=== PATIENT | female | born 1965 | race Two or more races ===

== ENCOUNTER 2020-06-19 05:21 | Day surgery (SDC) | payer OTHER ==
[~2020-06-19 05:21] MED LIST: ONE-DAILY MULT1 EAC1 PO
== END 2020-06-19 13:20 | disposition home or self-care (01) ==
LOC: CIR.AMB 05:21
PROVIDERS: ATTEND Specialist
DX: N87.0 Mild cervical dysplasia (principal); Z20.822 Contact with and (suspected) exposure to COVID-19

== ENCOUNTER 2022-01-18 07:34 | Emergency (ER) | payer OTHER ==
[~2022-01-18] VITALS: Ht 160 cm; Wt 61.2 kg
[2022-01-18] MEDS ORDERED: KETO10TA2 PO (12:21)
[2022-01-18] MEDS ORDERED: TAMS0.4C PO (12:21)
== END 2022-01-18 12:54 | disposition home or self-care (01) ==
LOC: ER 07:34
DX: N20.0 Calculus of kidney (principal); K57.30 Diverticulosis of large intestine without perforation or abscess without bleeding

== ENCOUNTER 2022-10-16 12:52 | Emergency (ER) | payer OTHER ==
[~2022-10-16] VITALS: Ht 160 cm; Wt 58.1 kg
[~2022-10-16 12:52] MED LIST changes: +KETO10TA2 PO; +TAMS0.4C PO
== END 2022-10-16 18:39 | disposition home or self-care (01) ==
LOC: ER 12:52
PROVIDERS: Emergency Medicine
DX: N20.0 Calculus of kidney (principal)

== ENCOUNTER 2022-12-12 08:33 | Outpatient (CLI) | payer OTHER | END 2022-12-12 08:42 | disposition home or self-care (01) | LOC: SONOGRAMA 08:33 | PROVIDERS: ATTEND Pathology Anatomic Pathology & Clinical Pathology | DX: D34 Benign neoplasm of thyroid gland (principal) ==

== ENCOUNTER 2024-10-04 20:51 | Emergency (ER) | payer OTHER ==
[~2024-10-04] VITALS: Ht 160 cm; Wt 56.2 kg
[2024-10-04] MEDS ORDERED: CEFTRIAXONE SODIUM 1,000 MG VIAL ONE (22:15)
[2024-10-04] MEDS ORDERED: KETOROLAC TROMETHAMINE 60 MG VIAL IM ONE ×2 (22:15)
[2024-10-04] MEDS ORDERED: CEFTRIAXONE SODIUM 1,000 MG VIAL IM ONE (22:15)
[2024-10-04 23:11] LABS: BASO % 0.8 % (0.1-1.2); EOS # 0.09 (0.04-0.54); EOS % 1.5 % (0.7-7.0); LYMPH # 1.20 (1.18-3.74); LYMPH % 20.3 % (19.3-53.1); MEAN PLATELET VOLUME 11.70 fl (9.4-12.4); MONO # 0.52 (0.24-0.82); MONO % 8.8 % (4.7-12.5); NEUT # 4.05 (1.56-6.13); NEUT % 68.4 % (34.0-71.1); RED CELL DISTRIBUTION WIDTH 12.0 % (11.6-14.4)
[2024-10-04 23:23] LABS: INR 1.01
[2024-10-04 23:28] LABS: ALT/SGPT 21.0 U/L (12-78); AST/SGOT 13.0 U/L (15-37); BILIRUBIN TOTAL 0.59 mg/dL (0.3-1.2); BUN CREA RATIO 22.0 (7.0-25.0); CREATININE SERUM 0.78 mg/dL (0.55-1.02); GFR 75.85; GLOBULINA 3.6 G/DL (2.4-3.5); GLUCOSE FASTING 98.0 mg/dL (65-100); OSMOLALITY SERUM 283.0 MOSM/KG (275-295)
[2024-10-04 23:47] LABS: URINE APPEARANCE Clear; URINE BILIRRUBIN Negative (NEGATIVE); URINE BLOOD Negative; URINE COLOR Yellow; URINE GLUCOSE Negative (NEGATIVE); URINE KETONE Trace (NEGATIVE); URINE LEUKOCYTE Negative; URINE NITRATE Negative; URINE PROTEIN Negative (NEGATIVE); URINE UROBILINOGEN 0.2 E.U./dl
[2024-10-04 23:55] LABS: URINE WBC 1.8 uL (0.0-23.2)
[2024-10-04 23:57] LABS: URINE BACTERIA 2.3 uL (0.0-1933); URINE CAST 0.14 uL (0.0-1.40); URINE EPITHELIAL CELLS 0.3 uL (0.0-38.8); URINE RBC 1.6 uL (0.0-20.8)
== END 2024-10-05 03:29 | disposition home or self-care (01) ==
LOC: ER 20:51
PROVIDERS: General Practice
DX: R10.32 Left lower quadrant pain (principal); K57.30 Diverticulosis of large intestine without perforation or abscess without bleeding; N20.0 Calculus of kidney